=== PATIENT | female | born 1970 | race Caucasian/White ===

== ENCOUNTER 2018-04-11 05:59 | Day surgery (SDC) | payer OTHER ==
[2018-04-11] MEDS ORDERED: LIDOCAINE 100 MG SYRINGE (07:40)
[2018-04-11] MEDS ORDERED: MIDAZOLAM 1 MG/ML 2 ML INJ (07:40)
[2018-04-11] MEDS ORDERED: PROPOFOL 40 ML (07:40)
[2018-04-11] MEDS ORDERED: EPHEDrine SULFATE 50 MG/5 ML SYG IV (08:30)
[2018-04-11] MEDS ORDERED: hydrALAzine 20 MG INJ IV (08:30)
[2018-04-11] MEDS ORDERED: IPRATROPIUM (NEB) 0.5 MG/2.5 ML AMP HHN (08:30)
[2018-04-11] MEDS ORDERED: ALBUTEROL 0.083% (NEB) 2.5 MG/3 ML AMP HHN (08:30)
[2018-04-11] MEDS ORDERED: TRIMETHOBENZAMIDE 100 MG/ML VIAL IM (08:30)
[2018-04-11] MEDS ORDERED: OXYCODONE/ACETAMINOPHEN (5/325) TAB PO ×2 (08:30)
[2018-04-11] MEDS ORDERED: MIDAZOLAM 1 MG/ML 2 ML INJ IV (08:30)
[2018-04-11] MEDS ORDERED: ONDANSETRON 4 MG INJ IV (08:30)
[2018-04-11] MEDS ORDERED: FENTAnyl 50 MCG/ML VIAL IV ×3 (08:30)
[2018-04-11] MEDS ORDERED: MEPERIDINE 25 MG INJ IV (08:30)
[2018-04-11] MEDS ORDERED: LABETALOL HCL 20MG INJ IV (08:30)
[2018-04-11] MEDS ORDERED: DIPHENHYDRAMINE 50 MG INJ IV (08:30)
[2018-04-11] MEDS ORDERED: HYDROmorphONE 1 MG/5 ML IV SYRINGE IV ×3 (08:30)
== END 2018-04-11 10:58 | disposition home or self-care (01) ==
LOC: GIL 05:59
DX: K92.1 Melena (principal); K64.1 Second degree hemorrhoids
CPT/HCPCS: 45378; 84703